=== PATIENT | female | born 1990 | race Caucasian/White ===

== ENCOUNTER → 2018-03-24 | Outpatient (CLI) | payer MEDICAID | LOC: LAB 19:12 | PROVIDERS: ATTEND Nurse Practitioner Acute Care | DX: R30.0 Dysuria (principal) | CPT/HCPCS: 87086; 87088; 87186 ==

== ENCOUNTER → 2018-11-29 | Outpatient (CLI) | payer MEDICAID ==
--- NOTE | 2018-11-29 13:39 | RADIOLOGY REPORT (SQ) ---
EXAM DESCRIPTION: MRI HEAD COMBO COMPLETED DATE/TIME: 11/29/2018 11:27 am REASON FOR STUDY: SENSORINEURAL HEARING LOSS, BILATERAL H90.3 SENSORINEURAL HEARING LOSS, BILATERAL COMPARISON: None. TECHNIQUE: Multiplanar imaging includes noncontrasted T1, T2, FLAIR, diffusion with ADC map and post gadolinium contrast T1 sequences. Additional thin sections through the internal auditory canals. Im ages stored on PACS. CONTRAST TYPE AND DOSE: 10 mL Dotarem. RENAL FUNCTION: None required. The patient is less than 50 years old. LIMITATIONS: None. FINDINGS: ANATOMY: No anomalies. Normal vascular flow voids. Pituitary fossa normal. CSF SPACES: Normal in size and contour. No hemorrhage. CEREBRUM: Sulci and gyri normal in size and contour. Normal white matter signal on FLAIR imaging. No evidence of hemorrhage, mass, or extraaxial fluid collection. No abnormal enhancement post contrast. POSTERIOR FOSSA: No signal alteration. No hemorrhage. No edema, masses, or mass effect. Internal charlotte tory canals, cerebellopontine angles, mastoids normal. Normal vestibular aqueduct. No enhancing les ions. No abnormal enhancement post contrast. DIFFUSION IMAGING: Negative for acute or subacute infarction. ORBITS: No masses. Globes normal. PARANASAL SINUSES: No fluid levels. Mucosa normal. OTHER: No other significant finding. IMPRESSION: Normal brain. Normal IAC's. EVIDENCE OF ACUTE STROKE: NO. TECHNICAL DOCUMENTATION: JOB ID: [id number] [employer]- All Rights Reserved Reading location - IP/workstation name: [email or web address]
== END ==
LOC: RAD 10:21
PROVIDERS: ATTEND Otolaryngology
DX: H90.3 Sensorineural hearing loss, bilateral (principal)
CPT/HCPCS: 70553; A9576

== ENCOUNTER 2019-07-31 20:23 | Emergency (ER) | payer MEDICAID ==
[2019-07-31] MEDS ORDERED: IBUPROFEN 400 MG TABLET PO ONE (20:49)
--- NOTE | 2019-07-31 20:51 | ER Document Report ---
ED Medical Screen (RME) - General Stated Complaint: LEFT ARM PAIN Time Seen by Provider: 07/31/19 20:49 Primary Care Provider: DINORA SNELL DO [Primary Care Provider] - Follow up as needed Information source: Patient Notes: Patient presents complaining of left shoulder pain that radiates into the left upper extremity. Patient feels as though she has a cold sensation inside of her left hand. Patient denies any injury. Patient states she has had the symptoms for the past 3 days. I have greeted and performed a rapid initial assessment of this patient. A comprehensive ED assessment and evaluation of the patient, analysis of test results and completion of the medical decision making process will be conducted by additional ED providers. TRAVEL OUTSIDE OF THE [place] IN LAST 30 DAYS: No - Related Data Allergies/Adverse Reactions: No Known Allergies Allergy (Unverified 07/31/19 20:46) Physical Exam - Vital signs Vitals: Temp Pulse Resp BP Pulse Ox 98.4 F 65 16 107/61 99 07/31/19 20:38 07/31/19 20:38 07/31/19 20:38 07/31/19 20:38 07/31/19 20:38 - General General appearance: Appears well, Alert Notes: 2+ left radial pulse, tenderness to the left shoulder joint, no deformity, no dislocation Course - Vital Signs Vital signs: Temp Pulse Resp BP Pulse Ox 98.4 F 65 16 107/61 99 07/31/19 20:38 07/31/19 20:38 07/31/19 20:38 07/31/19 20:38 07/31/19 20:38 Doctor's Discharge - Discharge Referrals: DINORA SNELL DO [Primary Care Provider] - Follow up as needed
--- NOTE | 2019-07-31 21:39 | RADIOLOGY REPORT (SQ) ---
EXAM DESCRIPTION: XR SHOULDER 2 OR MORE VIEWS CLINICAL INDICATION: 29-year-old female with LEFT shoulder pain. TECHNIQUE: Three views LEFT shoulder were obtained in AP, internal and external rotation and transcapular projections. COMPARISON: None. FINDINGS: There is no fracture or dislocation. The joint spaces are preserved. No soft tissue abnormalities are seen. Slight thoracic spine levo curvature versus patient positioning. IMPRESSION: No acute radiographic abnormality.
[2019-07-31] MEDS ORDERED: CYCLOBENZAPRINE HCL 10 MG TABLET PO ONE (22:01)
[2019-07-31] MEDS ORDERED: LIDOCAINE 5% (700 MG) TRANSDERMAL ADH..PATCH TP ONE (22:02)
--- NOTE | 2019-07-31 22:11 | ER Document Report ---
HPI - HPI Patient complains to provider of: left shoulder pain Time Seen by Provider: 07/31/19 20:49 Pain Level: 5 Context: Patient is a 21-year-old female presents to the emergency department with pain noted to the anterior left shoulder as well as proximal left upper arm. Patient's denying any trauma or injury. States there is a possibility she slept on it wrong but is unsure of any sort of incidents. States she has had this pain intermittently for the last 3 days. Patient voices a "cold sensation" to her left upper arm. No obvious trauma noted. - REPRODUCTIVE Reproductive: DENIES: : - MUSCULOSKELETAL Musculoskeletal: REPORTS: Extremity pain - left shoulder Past Medical History - General Information source: Patient - Social History Smoking Status: Current Every Day Smoker Chew tobacco use (# tins/day): No Frequency of alcohol use: None Drug Abuse: None Family History: Reviewed & Not Pertinent Patient has suicidal ideation: No Patient has homicidal ideation: No Vertical Provider Document - CONSTITUTIONAL Agree With Documented VS: Yes Notes: GENERAL: Alert, interacts well. No acute distress. HEAD: Normocephalic, atraumatic. EYES: Pupils equal, round, and reactive to light. Extraocular movements intact. ENT: Oral mucosa moist, tongue midline. NECK: Full range of motion. Supple. Trachea midline. LUNGS: Clear to auscultation bilaterally, no wheezes, rales, or rhonchi. No respiratory distress. HEART: Regular rate and rhythm. No murmur ABDOMEN: Soft, non-tender. Non-distended. Bowel sounds present in all 4 quadrants. EXTREMITIES: Moves all 4 extremities spontaneously. No edema, normal radial and dorsalis pedis pulses bilaterally. No cyanosis. Generalized pain noted anterior left shoulder and proximal left upper arm. No erythema, ecchymosis, crepitus felt, decreased range of motion secondary due to pain. Distal cap refill within 2 seconds left upper extremity. Full range of motion left elbow, left wrist. BACK: no cervical, thoracic, lumbar midline tenderness. No saddle anesthesia, normal distal neurovascular exam. NEUROLOGICAL: Alert and oriented x3. Normal speech. cranial nerves II through XII grossly intact. PSYCH: Normal affect, normal mood. SKIN: Warm, dry, normal turgor. No rashes or lesions noted. - INFECTION CONTROL TRAVEL OUTSIDE OF THE [place] IN LAST 30 DAYS: No Course - Re-evaluation Re-evalutation: 07/31/19 22:09 Shoulder X-Ray 07/31/19 20:49 IMPRESSION: No acute radiographic abnormality. Patient's x-rays revealed no signs of abnormalities. Discussed with her at length likely need for an MRI and follow-up with orthopedics. I have discussed continued use of [id number]-pra-[id number] Tylenol or Motrin, muscle relaxers and Lidoderm patches. Patient voices understanding, stable for discharge. - Vital Signs Vital signs: Temp Pulse Resp BP Pulse Ox 98.4 F 65 16 107/61 99 07/31/19 20:38 07/31/19 20:38 07/31/19 20:38 07/31/19 20:38 07/31/19 20:38 Discharge - Discharge Clinical Impression: Left shoulder pain Qualifiers: Chronicity: acute Qualified Code(s): M25.512 - Pain in left shoulder Condition: Stable Disposition: HOME, SELF-CARE Instructions: Shoulder Injury ([facility]), Exercise Program for the Shoulder ([facility]) Additional Instructions: As we discussed you have been seen and treated in the emergency department for your left shoulder pain. Please take [id number]-[id number] Tylenol or Motrin for generalized pain. Please also use muscle relaxers as needed. You can buy szyk-rgh-osktfuh Lidoderm patches, or Aspercreme. Please follow-up with orthopedics for an MRI as we discussed. Phone numbers will be provided in this packet. Return to the emergency room for any concerns. Prescriptions: Cyclobenzaprine HCl [Flexeril 5 mg Tablet] 5 mg PO TID #15 tablet Forms: Return to Work Referrals: TED ZAMBRANO MD [ACTIVE STAFF] - Follow up as needed
[2019-07-31 22:25] VITALS: BP 100/51
== END 2019-07-31 22:27 | disposition home or self-care (01) ==
LOC: ER 20:23
DX: M25.512 Pain in left shoulder (principal); M79.602 Pain in left arm; F17.200 Nicotine dependence, unspecified, uncomplicated
CPT/HCPCS: 99283; 73030; J3490 ×2

== ENCOUNTER 2019-10-21 17:34 | Emergency (ER) | payer MEDICAID ==
--- NOTE | 2019-10-21 19:00 | ER Document Report ---
HPI - HPI Time Seen by Provider: 10/21/19 18:45 Notes: 29-year-old female presents emergency with complaints of a left leg burn from her dog wrapping around her leg while he was stuck on the lead x2 days ago. Has not tried egfn-laz-yehynem medications. Denies any fevers or chills. Tetanus i s not up-to-date. Patient is concerned that may be getting infected. Pain is 3 out of 10, achy. Denies fevers, chills, chest pain,palpitations, shortness of breath, dyspnea, nausea, vomiting, diarrhea, abdominal pain, hematuria,blurred vision, double vision, loss of vision, speech changes, LH, dizziness, syncope, headaches, wheezing, ST, URI, neck pain, weakness, bowel or bladder dysfunction, saddle anesthesia, numbness or tingling in bilateral upper or lower extremities equally, muscle paralysis, weakness in bilateral upper or lower extremities equally or rash. - REPRODUCTIVE Reproductive: DENIES: : Past Medical History - General Information source: Patient - Social History Smoking Status: Unknown if Ever Smoked Family History: Reviewed & Not Pertinent Vertical Provider Document - CONSTITUTIONAL Agree With Documented VS: Yes Exam Limitations: No Limitations General Appearance: WD/WN Notes: PHYSICAL EXAMINATION: reviewed vital signs by RN GENERAL: Well-appearing, well-nourished and in no acute distress. HEAD: Atraumatic, normocephalic. EYES: Pupils equal round and reactive to light, extraocular movements intact, conjunctiva are normal. ENT: Nares patent, oropharynx clear without exudates. Moist mucous membranes. NECK: Normal range of motion, supple without lymphadenopathy LUNGS: Breath sounds clear to auscultation bilaterally and equal. No wheezes rales or rhonchi. HEART: Regular rate and rhythm without murmurs ABDOMEN: Soft, nontender, nondistended abdomen. No guarding, no rebound. No masses appreciated. Female : deferred Musculoskeletal: Normal range of motion, no pitting or edema. No cyanosis. NEUROLOGICAL: Cranial nerves grossly intact. Normal speech, normal gait. Normal sensory, motor exams PSYCH: Normal mood, normal affect. SKIN: Warm, Dry, normal turgor, no rashes or lesions noted. 4cm length x0.5cm width linear laceration, non-circumferential. no open wounds. distal pulses + 2 bilaterally. negative aung's test. able to bear full weight. - INFECTION CONTROL TRAVEL OUTSIDE OF THE [place] IN LAST 30 DAYS: No Course - Re-evaluation Re-evalutation: 10/21/19 20:07 Afebrile vital stable no distress. Nurse's notes reviewed. Patient received tetanus since her last immunization was over [address] patient on Keflex twice a day for 10 days, advised to wash with soap and water at least twice a day, monitor for any signs of worsening infection such as worsening redness, drainage, swelling. Appears to be a burn from the lead cord that wraps partially around her left lower leg. Distal pulses are palpable, no signs of systemic infection, patient can bear full weight distal pulses palpable muscle strength 5 out of 5 bilateral lower extremities, full motor and sensory function to bilateral lower extremities, no concerns for DVT. After performing a Medical Screening Examination, I estimate there is LOW risk for OPEN FRACTURE, COMPARTMENT SYNDROME, TENDON RUPTURE, ACUTE NEUROVASCULAR INJURY, or RETAINED FOREIGN BODY, thus I consider the discharge disposition reasonable. Also, there is no evidence or peritonitis, sepsis, or toxicity. I have reevaluated this patient multiple times and no significant life threatening changes are noted. The patient and I have discussed the diagnosis and risks, and we agree with discharging home with close follow-up with the understanding that symptoms and presentations can change. We also discussed returning to the Emergency Department immediately if new or worsening symptoms occur. We have discussed the symptoms which are most concerning (e.g., changing or worsening pain, fever, numbness, weakness, cool or painful digits) that necessitate immediate return. - Vital Signs Vital signs: Temp Pulse Resp BP Pulse Ox 97.4 F 66 16 105/62 97 10/21/19 18:12 10/21/19 18:12 10/21/19 18:12 10/21/19 18:12 10/21/19 18:12 Discharge - Discharge Clinical Impression: old wound to left calf, Cellulitis Condition: Stable Disposition: HOME, SELF-CARE Instructions: Cellulitis ([facility]) Additional Instructions: Take antibiotics as directed with food. Finish out course of antibiotics. Monitor for any signs of worsening redness swelling, drainage, apply heat 20 minutes on 20 minutes off several times a day. You need to return to emergency department if the redness spreads outside of this area by more than 2 cm in any direction that it was today. You should also return if you develop fevers with temperature greater than 101, persistent vomiting, worsening pain, or have any other symptoms that are concerning to you. Prescriptions: Cephalexin Monohydrate [Keflex 500 mg Capsule] 500 mg PO BID #20 capsule Forms: Return to Work Referrals: DONN FIGUEROA MD [COMMUNITY BASED STAFF] - Follow up as needed
[2019-10-21] MEDS ORDERED: DIPH/PERTUSS(ACELL)/TETANUS VAC/PF 0.5 ML SYR (>=10YO) IM ONE (19:09)
[2019-10-21 19:59] VITALS: BP 115/68
== END 2019-10-21 20:03 | disposition home or self-care (01) ==
LOC: ER 17:34
DX: S81.812A Laceration without foreign body, left lower leg, initial encounter (principal); X58.XXXA Exposure to other specified factors, initial encounter; L03.90 Cellulitis, unspecified; Z23 Encounter for immunization
CPT/HCPCS: 90471; 90715; 99283

== ENCOUNTER 2019-10-31 13:04 | Emergency (ER) | payer MEDICAID ==
[2019-10-31] MEDS ORDERED: DIPHENHYDRAMINE HCL 50 MG/ML VIAL IV ONE (14:31)
[2019-10-31] MEDS ORDERED: NORMAL SALINE 1000 ML 1,000 ML IV ONE (14:31)
[2019-10-31] MEDS ORDERED: KETOROLAC TROMETHAMINE INJ/PF 30 MG/1 ML SDV IV ONE (14:31)
[2019-10-31] MEDS ORDERED: ONDANSETRON HCL INJ/PF 4 MG/2 ML SDV IV ONE (14:31)
--- NOTE | 2019-10-31 14:34 | ER Document Report ---
ED Medical Screen (RME) - General Chief Complaint: Headache Stated Complaint: HEAD PAIN Time Seen by Provider: 10/31/19 14:24 TRAVEL OUTSIDE OF THE [place] IN LAST 30 DAYS: No - HPI Notes: 10/31/19 14:32 29-year-old female to the emergency department with complaints of a severe headache that started this morning. She states she awoke with a headache. She states she has associated dizziness. She has a history of Mnire's but she feels like with this headache that her ears are extremely full and night she is spinning. She admits to some nausea. She also admits to bilateral side of the neck pain like achiness. She states she has some nasal congestion but denies sore throat. Admits to a slight cough. She states her children have been sick with the same. She states that she has not had a fever and she does not have body aches anywhere else. She not get a flu shot this season. She states that she is never had a headache this severe before. I performed a brief medical screening exam on the patient determined she will need further evaluation and management by main side provider. Will place initial orders to help expedite her care. Patient agrees with the plan. - Related Data Allergies/Adverse Reactions: No Known Allergies Allergy (Unverified 07/31/19 20:46) Physical Exam - Vital signs Vitals: Temp Pulse Resp BP Pulse Ox 98.5 F 79 18 111/63 99 10/31/19 14:10/31/19 14:10/31/19 14:10/31/19 14:01 10/31/19 14:01 Course - Vital Signs Vital signs: Temp Pulse Resp BP Pulse Ox 98.5 F 79 18 111/63 99 10/31/19 14:10/31/19 14:10/31/19 14:10/31/19 14:10/31/19 14:01
[2019-10-31 15:24] LABS: ABSOLUTE BASOPHILS # (AUTO) 0.1 10^3/uL (0.0-0.2); ABSOLUTE EOSINOPHILS # (AUTO) 0.4 10^3/uL (0.0-0.6); ABSOLUTE LYMPHOCYTES (AUTO) 1.1 10^3/uL (0.5-4.7); ABSOLUTE MONOCYTES (AUTO) 0.5 10^3/uL (0.1-1.4); ABSOLUTE NEUT (AUTO) 4.9 10^3/uL (1.7-8.2); BASOPHILS % (AUTO) 0.9 % (0-2); EOSINOPHILS % (AUTO) 5.4 % (0-6); HEMATOCRIT 42.9 % (36.0-47.0); HEMOGLOBIN 14.6 g/dL (12.0-15.5); LYMPHOCYTES % (AUTO) 15.4 % (13-45); MEAN CORPUSCULAR HEMOGLOBIN 28.9 pg (27.0-33.4); MEAN CORPUSCULAR VOLUME 85 fl (80-97); MONOCYTES % (AUTO) 7.8 % (3-13); PLATELET COUNT 279 10^3/uL (150-450); RED BLOOD COUNT 5.04 10^6/uL (3.72-5.28); RED CELL DISTRIBUTION WIDTH 13.1 % (11.5-14.0); SEGMENTED NEUTROPHILS % (AUTO) 70.5 % (42-78); TOTAL CELLS COUNTED % (AUTO) 100 %; WHITE BLOOD COUNT 6.9 10^3/uL (4.0-10.5)
[2019-10-31 15:42] LABS: A TYPE INFLUENZA AG NEGATIVE (NEGATIVE); B INFLUENZA AG NEGATIVE (NEGATIVE)
[2019-10-31 15:42] LABS: ALBUMIN 4.6 g/dL (3.5-5.0); ALKALINE PHOSPHATASE 49 U/L (38-126); ANION GAP 11 (5-19); ASPARTATE AMINO TRANSFERASE 21 U/L (14-36); BILIRUBIN,DIRECT 0.2 mg/dL (0.0-0.4); BILIRUBIN,TOTAL 0.7 mg/dL (0.2-1.3); BLOOD UREA NITROGEN 12 mg/dL (7-20); CALCIUM 9.9 mg/dL (8.4-10.2); CARBON DIOXIDE 26 mmol/L (22-30); CHLORIDE 104 mmol/L (98-107); GLUCOSE 120 mg/dL (75-110); POTASSIUM 4.5 mmol/L (3.6-5.0); TOTAL PROTEIN 7.9 g/dL (6.3-8.2)
--- NOTE | 2019-10-31 16:05 | EKG REPORT ---
SEVERITY:- NORMAL ECG - SINUS RHYTHM : Confirmed by: Mika Lui MD 31-Oct-2019 16:05:04
--- NOTE | 2019-10-31 20:15 | ER Document Report ---
ED Headache - General Chief Complaint: Headache Stated Complaint: HEAD PAIN Time Seen by Provider: 10/31/19 14:24 [facility] - Follow up as needed Notes: Patient is a 29-year-old female with a history of Mnire's disease who presents to the emergency department with a chief complaint of a headache, sinus congestion, runny nose, and left ear pain. Patient states that she is currently on a diuretic to help with her Mnire's disease. Patient states that her family members were sick with the same issues. She ended up waking up and woke up with her symptoms. TRAVEL OUTSIDE OF THE [place] IN LAST 30 DAYS: No - Related Data Allergies/Adverse Reactions: No Known Allergies Allergy (Unverified 07/31/19 20:46) Past Medical History - General Information source: Patient - Social History Smoking Status: Unknown if Ever Smoked Family History: Reviewed & Not Pertinent Patient has suicidal ideation: No Patient has homicidal ideation: No Review of Systems - Review of Systems Notes: REVIEW OF SYSTEMS: CONSTITUTIONAL : Denies recent illness. Denies recent unintentional weight loss. Denies fever, chills, or sweats. EENT: See HPI. CARDIOVASCULAR: Denies chest pain. RESPIRATORY: Denies shortness of breath, cough, congestion, difficulty breathing, or wheezing. GASTROINTESTINAL: Denies nausea, vomiting, and diarrhea. Denies abdominal pain. Denies constipation. GENITOURINARY: Denies difficulty urinating, burning, blood in urine, urgency or frequency. MUSCULOSKELETAL: Denies neck and back pain. Denies joint pain or swelling. SKIN: Denies rash, itchiness, or lesions HEMATOLOGIC : Denies easy bruising or bleeding. LYMPHATIC: Denies swollen, painful, enlarged glands. NEUROLOGICAL: Denies no numbness or tingling denies weakness. Denies headache. Denies altered mental status. Denies alteration in speech. PSYCHIATRIC: Denies stress, anxiety, alteration in sleep patterns, or depression. All other systems reviewed and negative. Physical Exam - Vital signs Vitals: Temp Pulse Resp BP Pulse Ox 98.5 F 79 18 111/63 99 10/31/19 14:01 10/31/19 14:01 10/31/19 14:01 10/31/19 14:01 10/31/19 14:01 - Notes Notes: PHYSICAL EXAMINATION: GENERAL: Appears well, healthy, well-nourished, no acute distress. HEAD: Normocephalic, atraumatic. EYES: PERRL, conjunctiva normal, all extraocular movements intact, sclera nonicteric ENT: Moist mucous membranes. Injected left tympanic membrane. Rhinorrhea, edema, and erythema noted to the nasal mucosa. NECK: Supple, no noticeable swelling, redness, rash. Normal range of motion. LUNGS: Equal breath sounds bilaterally and clear to auscultation. No wheezes rales or rhonchi. CARDIOVASCULAR: S1-S2, regular rate, regular rhythm. Radial pulses 2+, normal. ABDOMEN: Normoactive bowel sounds. Soft, nontender, no guarding, no rebound tenderness, and no masses palpated. EXTREMITIES: Normal strength and range of motion, no pitting or edema. No cyanosis. NEUROLOGICAL: Moves all extremities upon command. Strength 5/5 in all ex tremities. PSYCH: Normal mood, normal affect. SKIN: Warm, dry. No rash, lesions, ulcerations noted. Normal skin turgor. Course - Re-evaluation Re-evalutation: 11/01/19 Patient's headache has resolved. Hematology is unremarkable. Chemistries show glucose of 120, with all other chemistries normal. hCG is negative. Influenza screen is also negative. I suspect the patient has an upper respiratory viral infection that then led to otitis media. Patient has purulent drainage noted behind left tympanic membrane. Patient will be started on Augmentin. She also be sent home with cetirizine and Flonase. Patient is in agreement with this plan. Follow-up precautions were given. Verbal discharge instructions were given to the patient. They verbalized understanding. They are stable for discharge. - Vital Signs Vital signs: Temp Pulse Resp BP Pulse Ox 98.1 F 84 20 121/62 100 10/31/19 20:46 10/31/19 20:46 10/31/19 20:46 10/31/19 20:46 10/31/19 20:46 - Laboratory Result Diagrams: 10/31/19 15:08 10/31/19 15:08 Laboratory results interpreted by me: 10/31/19 15:08 Glucose 120 H Discharge - Discharge Clinical Impression: Rhinorrhea, Upper respiratory infection, viral Left otitis media Qualifiers: Otitis media type: mucoid Chronicity: acute Qualified Code(s): H65.112 - Acute and subacute allergic otitis media (mucoid) (sanguinous) (serous), left ear Headache Qualifiers: Headache type: unspecified Headache chronicity pattern: acute headache Intractability: not intractable Qualified Code(s): R51 - Headache Condition: Stable Disposition: HOME, SELF-CARE Additional Instructions: You are seen today in the emergency department for a headache, ear pain, and a runny nose. You have an ear infection. Please take your antibiotics as prescribed. Please also restart Flonase and start cetirizine to help with your symptoms. Please follow-up with your primary care provider in regards to this visit. You can take Tylenol 1000 mg and ibuprofen 600 mg every 6 hours as needed for your pain. Prescriptions: Cetirizine HCl [All Day Allergy] 10 mg PO DAILY #30 tablet Amox Tr/Potassium Clavulanate [Augmentin 400-57 mg/5 mL Suspension] 10 ml PO TID 10 Days #1 bottle Fluticasone Propionate [Flonase Nasal Emerson 50 Mcg/Emerson 16 gm] 2 sprays NASL DAILY #1 inhaler Referrals: [facility] [Provider Group] - Follow up as needed
[2019-10-31 20:49] VITALS: BP 121/62
== END 2019-10-31 20:49 | disposition home or self-care (01) ==
LOC: ER 13:04
DX: J06.9 Acute upper respiratory infection, unspecified (principal); B97.89 Other viral agents as the cause of diseases classified elsewhere; H65.112 Acute and subacute allergic otitis media (mucoid) (sanguinous) (serous), left ear; J34.89 Other specified disorders of nose and nasal sinuses; R51 Headache; R09.81 Nasal congestion; R09.89 Other specified symptoms and signs involving the circulatory and respiratory systems; H92.02 Otalgia, left ear
CPT/HCPCS: 93005; 99283; 96361; 96374; 96375; 36415; 83735; 84703; 85025; 80053; 87804; 93010; J1200; J1885; J2405; J7030